=== PATIENT | male | born 1985 | race African-American/Black ===

== ENCOUNTER 2021-02-14 06:22 | Emergency (ER) | payer MEDICAID ==
[~2021-02-14] VITALS: Ht 180.3 cm; Wt 75.0 kg
[2021-02-14] MEDS ORDERED: CEFTRIAXONE SODIUM 500 MG/VIAL IM ONE (06:45)
[2021-02-14] MEDS ORDERED: DOXY100C2 MT (06:47)
[2021-02-14 06:58] VITALS: BP 117/88
== END 2021-02-14 06:59 | disposition home or self-care (01) ==
LOC: ER 06:27
DX: A64 Unspecified sexually transmitted disease (principal); F12.10 Cannabis abuse, uncomplicated; Z79.899 Other long term (current) drug therapy
CPT/HCPCS: 96372; 99283; J0696

== ENCOUNTER 2023-05-21 03:21 | Emergency (ER) | payer MEDICAID, OTHER ==
[~2023-05-21] VITALS: Ht 180.3 cm; Wt 90.3 kg
[~2023-05-21 03:21] MED LIST: DOXY100C5 MT
[2023-05-21 03:31] VITALS: PULSE 93; RESP 18
[2023-05-21 03:39] VITALS: BP 116/81; TEMP 98.3; O2SAT 98
[2023-05-21] MEDS ORDERED: LIDOCAINE HCL 1% 20ML VIAL (Pyxis) INJ INFIL ONE (04:00)
[2023-05-21] MEDS ORDERED: CEFTRIAXONE SODIUM 500 MG/VIAL IM ONE (04:00)
[2023-05-21] MEDS ORDERED: PYR200 PO (04:23)
[2023-05-21] MEDS ORDERED: DOXY100T28 PO (04:23)
[2023-05-21 04:46] LABS: CLARITY URINE CLEAR (CLEAR); COLOR URINE YELLOW (YELLOW); KETONES URINE NEGATIVE (NEGATIVE); LEUKOCYTE ESTERASE URINE 2+ (NEGATIVE); NITRITE URINE NEGATIVE (NEGATIVE); OCCULT BLOOD URINE NEGATIVE (NEGATIVE); PROTEIN URINE NEGATIVE (NEGATIVE); SPECIFIC GRAVITY URINE 1.027 (1.005-1.030); UROBILINOGEN URINE 0.2 E.U./dL (0.2-1.0)
[2023-05-28 08:12] LABS: NEISSERIA GONORRHOEAE NAA Positive (Negative)
== END 2023-05-21 05:51 | disposition home or self-care (01) ==
LOC: ER 03:21
DX: N34.2 Other urethritis (principal); F12.10 Cannabis abuse, uncomplicated
CPT/HCPCS: 99283; 87491; 87591; 81003; 87086; 87077; 96372; J0696; J3490